=== PATIENT | female | born 1995 | race Caucasian/White ===

== ENCOUNTER 2019-05-10 10:41 | Day surgery (SDC) | payer BC ==
[~2019-05-10 10:41] MED LIST: Lactated Ringers 1,000 ML IV SCH; Lidocaine 1%/Sod Bicarbonate in NS 8.4% 1 ML Syringe IDERM PRN; Sodium Chloride 0.9% 10 ML Syringe FLUSH PRN
--- NOTE | 2019-05-10 11:20 | PCM.PREANE ---
Preanesthetic Assessment - Procedure Proposed Procedure: lap choley - Anesthesia/Transfusion/Family Hx Anesthesia History: Prior Anesthesia Reaction Type of Anesthesia Reaction: Excessive Nausea/Vomiting Family History of Anesthesia Reaction: No Transfusion History: No Prior Transfusion(s) - Review of Systems General: No Symptoms Pulmonary: No Symptoms Cardiovascular: No Symptoms Gastrointestinal: No Symptoms Neurological: No Symptoms Other: Reports: None - Physical Assessment NPO Status Date: 05/09/19 NPO Status Time: 19:00 Vital Signs: 98.6 18 96% 94 113/83 Height: 5 ft 4 in Weight: 100.1 kg ASA Class: 2 Mental Status: Alert & Oriented x3 Airway Class: Mallampati = 1 Dentition: Reports: Normal Dentition Thyro-Mental Finger Breadths: 3 Mouth Opening Finger Breadths: 3 ROM/Head Extension: Full Lungs: Clear to Auscultation, Normal Respiratory Effort Cardiovascular: Regular Rate, Regular Rhythm - Lab Values: Laboratory Last Values Urine HCG, Qual Negative (NEGATIVE) 05/10/19 11:01 - Allergies Allergies/Adverse Reactions: Allergies Allergy/AdvReac Type Severity Reaction Status Date / Time adhesive Allergy Rash Verified 05/09/19 18:14 iodine Allergy Rash Verified 05/09/19 18:14 latex Allergy Rash Verified 05/09/19 18:14 Sulfa (Sulfonamide Allergy Rash Verified 05/09/19 18:14 Antibiotics) sulfamethoxazole Allergy Rash Verified 05/09/19 18:14 [From Bactrim] trimethoprim [From Bactrim] Allergy Rash Verified 05/09/19 18:14 metal Allergy Rash Uncoded 05/09/19 18:14 - Blood Blood Available: No - Acknowledgements Anesthesia Type Planned: General Anesthesia Pt an Appropriate Candidate for the Planned Anesthesia: Yes Alternatives and Risks of Anesthesia Discussed w Pt/Guardian: Yes Pt/Guardian Understands and Agrees with Anesthesia Plan: Yes PreAnesthesia Questionnaire HEENT History: Reports: Allergic Rhinitis, Impaired Vision Other HEENT History: wears glasses Cardiovascular History: Reports: Other (See Below) Other Cardiovascular History: nguyen parkinson white syndrome, tachycardia--ekg mar 2018 normal ekg per patient Respiratory History: Reports: None Gastrointestinal History: Reports: None Other Gastrointestinal History: biliary calculus, RUQ pain Genitourinary History: Reports: None 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 (See Below) Other OB/BYN History: ovarian cyst removal, pelvic pain, irregular menses, ovarian cyst, PCOS, laparsocopy Musculoskeletal History: Reports: Fibromyalgia, RA Other Musculoskeletal History: bilateral carpal tunnel syndrome, left cubital tunnel syndrome, bilateral elbow epicondylitis Neurological History: Reports: None Psychiatric History: Reports: None Endocrine/Metabolic History: Reports: Diabetes, Gestational (resolved- bs never high), Obesity/BMI 30+ Hematologic History: Reports: Other (See Below) Other Hematologic History: hemochromotosis, leukocytosis Immunologic History: Reports: None Oncologic (Cancer) History: Reports: None Dermatologic History: Reports: Eczema, Other (See Below) Other Dermatologic History: dermoid cyst removal - Past Surgical History Head Surgeries/Procedures: Reports: None HEENT Surgical History: Reports: None Cardiovascular Surgical History: Reports: None Respiratory Surgical History: Reports: None GI Surgical History: Reports: None Female Surgical History: Reports: Section, Other (See Below) (cyst removed laparoscopically) Male Surgical History: Endocrine Surgical History: Reports: None Neurological Surgical History: Reports: None Musculoskeletal Surgical History: Reports: Other (See Below) Other Musculoskeletal Surgeries/Procedures:: multiple right ankle surgeries Oncologic Surgical History: Reports: None - SUBSTANCE USE Smoking Status *Q: Never Smoker Tobacco Use Within Last Twelve Months: No Second Hand Smoke Exposure: No Days Per Week of Alcohol Use: 0 Recreational Drug Use History: No - HOME MEDS Home Medications: Home Meds Amoxicillin/Potassium Clav [Augmentin 875-125 Tablet] 1 tab PO BID 05/09/19 [ History] Vit37/Iron/Folic Acid [Prenata] 1 tab PO DAILY 05/09/19 [History] - CURRENT (IN HOUSE) MEDS Current Meds: Current Medications Lactated Ringer's (Ringers, Lactated) 1,000 mls @ 125 mls/hr IV ASDIRECTED KIRSTEN Stop: 05/10/19 23:00 Lidocaine/Sodium Bicarbonate (Buffered Lidocaine 1% In Ns 8.4%) 0.25 ml IDERM ONETIME PRN PRN Reason: Prior to IV Start Stop: 05/10/19 18:00 Sodium Chloride (Saline Flush) 10 ml FLUSH ASDIRECTED PRN PRN Reason: Keep Vein Open Stop: 05/10/19 18:00
[2019-05-10] MEDS ORDERED: Scopolamine 1.5 MG Transdermal Patch TOP ONE (11:30)
[2019-05-10] MEDS ORDERED: Lidocaine 1% 4 ML ONE (12:05)
[2019-05-10] MEDS ORDERED: Propofol 200 MG/20 ML SDV ONE ×2 (12:05→14:02)
[2019-05-10] MEDS ORDERED: Ondansetron 4 MG/2 ML SDV ONE (12:05)
[2019-05-10] MEDS ORDERED: Midazolam 1 MG/ML 2 ML SDV ONE (12:05)
[2019-05-10] MEDS ORDERED: Succinylcholine/Normal Saline 100 MG/5 ML Syringe ONE (12:05)
[2019-05-10] MEDS ORDERED: Lactated Ringers 1,000 ML ONE (12:05)
[2019-05-10] MEDS ORDERED: fentaNYL 250 MCG/5 ML SDV ONE (12:05)
[2019-05-10] MEDS ORDERED: Dexamethasone 4 MG/ML 5 ML MDV ONE (12:06)
[2019-05-10] MEDS ORDERED: Ketorolac 15 MG/ML SDV ONE (12:06)
[2019-05-10] MEDS ORDERED: Bupivacaine 0.5%/EPINEPHrine 1:200,000 50 ML MDV ONE (12:08)
[2019-05-10] MEDS ORDERED: HYDROmorphone 0.5 MG/0.5 ML Syringe ONE (13:59)
[2019-05-10] MEDS ORDERED: diphenhydrAMINE 50 MG/ML SDV ONE (13:59)
[2019-05-10] MEDS ORDERED: Neostigmine Methylsulfate 1 MG/ML 5 ML Syringe ONE (14:01)
[2019-05-10] MEDS ORDERED: HYDROmorphone 0.5 MG/0.5 ML Syringe IVPUSH PRN (14:32)
[2019-05-10] MEDS ORDERED: Ondansetron 4 MG/2 ML SDV IVPUSH PRN (14:32)
[2019-05-10] MEDS ORDERED: fentaNYL 100 MCG/2 ML SDV IVPUSH PRN (14:32)
--- NOTE | 2019-05-10 14:32 | PCM.POSTAN ---
POST ANESTHESIA ASSESSMENT - MENTAL STATUS Mental Status: Other (Drowsy) - VITAL SIGNS Vital Signs: Last Vital Signs Temp 37.0 C 05/10/19 11:00 Pulse 94 05/10/19 11:00 Resp 18 05/10/19 11:00 BP 113/83 05/10/19 11:00 Pulse Ox 96 05/10/19 11:00 1422 122/73 99 15 95% 97.2F - RESPIRATORY Respiratory Status: Respiratory Rate WNL, Airway Patent, O2 Saturation Stable, Supplemental Oxygen - CARDIOVASCULAR CV Status: Pulse Rate WNL, Blood Pressure Stable - GASTROINTESTINAL GI Status: No Symptoms - PAIN Pain Score: 0 - POST OP HYDRATION Hydration Status: Adequate & Stable
--- NOTE | 2019-05-10 14:35 | PCM.PRNOTE ---
- Free Text/Narrative Note: Operative Report Operation: laparoscopic cholecystectomy Date: 05/10/2019 Attending Surgeon: Enrique Velasquez MD Indication for Surgery:symptomatic cholelithiasis Preoperative antibiotics: 2 g Ancef IV VTE prophylaxis: SCDs Estimated Blood Loss: 10 cc Findings: normal anatomy. Small gallstones. Detailed Report: The patient underwent general endotracheal anesthesia after being placed supine on the operating table and initial timeout. The abdomen was prepped and draped in sterile fashion. A pre-incision timeout was performed confirming the patient s identity and the operation to be performed. A Veress needle was inserted into the abdominal cavity below the left costal margin along the mid-clavicular line. The abdomen was insufflated with CO2 to 15 mm Hg. Gas was aspirated below the umbilicus with a syringe in order to ensure safe placement of a 5 mm bladed laparoscopic port. The 5mm 30 degree laparoscope was then inserted and viscera inspected. The gallbladder appeared normal. Two additional 5 mm ports were placed along the right subcostal region under direct vision with the laparoscope , and a 12 mm port was placed at the subxiphoid region. The gallbladder was grasped at the fundus with a locking grasper and retracted anteriorly and superiorly, exposing the infundibulum. This was grasped with the surgeons left hand grasper and retracted laterally. The hook electrode was used to open the overlying peritoneum, and this plane of dissection was developed along the edges of the gallbladder at its interface with the liver bed. A combination of hook electrode, blunt dissection with the suction optimization manager and the [place] grasper were used to carefully expose and skeletonize the cystic duct and artery. A critical view of safety was obtained. Hemolock clips were then placed on both structures; two each on the stay side and one each on the specimen side for the duct and just one clip on the stay side for the artery prior to transection. The duct was transected with laparoscopic scissors. The artery was divided distal to the clip with the hook. The hook was then used to dissect the gallbladder free from its attachment to the liver. The clip on the cystic duct on the specimen side came off a little and there was some bile spillage and a very small gallstone noted. Once free, the specimen was then placed in an Endocatch bag and removed through the subxiphoid port. The area was thoroughly irrigated and suctioned. The liver bed was inspected and appeared hemostatic. The larger subxiphoid port was closed at the level of the fascia with vicryl suture using the PMI laparoscopic suture passer. Pneumoperitoneum was then released. All skin incisions were then closed with placement of subcuticular vicryl suture and dressed with dermabond. A total of 25 cc 0.5% marcaine with epinephrine was used for local anesthesia at the incision sites. The patient tolerated the operation well, was extubated in the operating room and transferred to the PACU for routine post-anesthesia care. Enrique Velasquez MD General Surgery
--- NOTE | 2019-05-10 14:57 | PCM48HPAN ---
Post Anesthesia Note - EVALUATION WITHIN 48HRS OF ANESTHETIC Vital Signs in Normal Range: Yes Patient Participated in Evaluation: Yes Respiratory Function Stable: Yes Airway Patent: Yes Cardiovascular Function Stable: Yes Hydration Status Stable: Yes Pain Control Satisfactory: Yes Nausea and Vomiting Control Satisfactory: Yes Mental Status Recovered: Yes Vital Signs: Last Vital Signs Temp 37.0 C 05/10/19 11:00 Pulse 94 05/10/19 11:00 Resp 18 05/10/19 11:00 BP 113/83 05/10/19 11:00 Pulse Ox 96 05/10/19 11:00
[2019-05-10] MEDS ORDERED: oxyCODONE 5 MG Tab PO PRN (17:16)
== END 2019-05-10 17:40 | disposition home or self-care (01) ==
LOC: JD.SDS 10:41 → JD.MS 15:53 → JD.SDS 17:40
PROVIDERS: ATTEND Surgery
DX: K80.10 Calculus of gallbladder with chronic cholecystitis without obstruction (principal); K82.8 Other specified diseases of gallbladder; E66.9 Obesity, unspecified; Z68.37 Body mass index [BMI] 37.0-37.9, adult; Z88.2 Allergy status to sulfonamides; Z91.048 Other nonmedicinal substance allergy status; Z91.040 Latex allergy status; Z88.8 Allergy status to other drugs, medicaments and biological substances
CPT/HCPCS: 00790; 81025; 93005; A9270-GY; J0330; J1100; J1170; J1200; J1885; J2001; J2250; J2405; J2704; J2710; J3010; J3490; J7120